=== PATIENT | male | born 1995 | race Hispanic/Latino ===

== ENCOUNTER 2016-06-03 12:54 | Emergency (ER) | payer OTHER ==
[2016-06-03] MEDS ORDERED: ONDANSETRON 4MG/2ML VIAL (J2405) As Ordered ONE (13:59)
[2016-06-03] MEDS ORDERED: KETOROLAC 30 MG/ML VIAL (J1885) As Ordered ONE (13:59)
[2016-06-03 14:16] LABS: BASO % 0.2 % (0.0-1.0); EOS # 0.1 K/mm3 (0.0-0.50); EOS % 0.7 % (0.0-3.0); LARGE UNSTAINED CELL # 0.2 K/mm3 (0.0-0.4); LARGE UNSTAINED CELL % 1.5 % (0.0-4.0); LYMPH # 1.6 K/mm3 (1.5-6.5); LYMPH % 12.9 % (24.0-44.0); MEAN CORPUSCULAR HEMOGLOBIN 30.7 pg (27.0-33.0); MEAN CORPUSCULAR VOLUME 90.2 fl (80.0-96.0); MONO # 0.4 K/mm3 (0.0-0.8); MONO % 3.6 % (0.0-5.0); NEUTROPHILS # 9.7 K/mm3 (1.8-7.7); NEUTROPHILS % 81.1 % (36.0-66.0); PLATELET COUNT, AUTOMATED 261 k/mm3 (150-450); RED CELL DISTRIBUTION WIDTH 12.2 % (11.5-14.5)
[2016-06-03 14:32] LABS: ALBUMIN 4.4 GM/DL (3.2-5.2); ALBUMIN/GLOBULIN RATIO 1.42 (1.00-1.93); ALKALINE PHOSPHATASE 95 U/L (45-117); ALT/SGPT 72 U/L (12-78); ANION GAP 8 MEQ/L (8-16); AST/SGOT 34 U/L (15-37); BILIRUBIN,DIRECT 0.1 MG/DL (0.0-0.2); BILIRUBIN,TOTAL 0.6 MG/DL (0.2-1.0); BLOOD UREA NITROGEN 10 MG/DL (7-18); CALCIUM LEVEL 9.2 MG/DL (8.5-10.1); CARBON DIOXIDE LEVEL 28 MEQ/L (21-32); CHLORIDE LEVEL 107 MEQ/L (98-107); GLOMERULAR FILTRATION RATE > 60.0 (>60); GLUCOSE, FASTING 96 MG/DL (70-105); POTASSIUM SERUM 3.9 MEQ/L (3.5-5.1); SODIUM LEVEL 143 MEQ/L (136-145); TOTAL PROTEIN 7.5 GM/DL (6.4-8.2)
--- NOTE | 2016-06-03 15:38 | EDDOCDS ---
Nurse's Notes [facility] Name: Jt Alvarez Age: 20 yrs Sex: Male : 1995 Arrival Date: 06/03/2016 Time: 12:54 Bed I3 / M3 Private MD: Other - Complete Info On Cds Diagnosis: Calculus of gallbladder with acute cholecystitis-AND SLUDGE ON U.S.;Unspecified abdominal pain-RUQ;Nausea with vomiting, unspecified;Diarrhea, unspecified Presentation: 06/03 13:06 Presenting complaint: Patient states: "I woke up with a sharp pain in my abdomen and jc4 since then I've been throwing up and now it's moved to my right side". Adult Sepsis Screening: The patient does not have new or worsening altered mentation. Patient's respiratory rate is less than 22. Systolic blood pressure is greater than 100. Patient has a qSOFA score of 0- Negative Sepsis Screen. Suicide/Homicide risk assessment- the patient denies having any suicidal and/or homicidal ideations and does not present with any other emotional, behavioral or mental health complaints. 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 Transition of care: patient was not received from another setting of care. 13:06 Acuity: GLENDY Level 3 jc4 13:06 Method Of Arrival: Walkin/Carried/Asstd jc4 Triage Assessment: 13:07 General: Appears uncomfortable. Pain: Pain currently is 6 out of 10 on a pain scale. Pt jc4 Declines HIV testing. Historical: - Allergies: no known allergies; - Home Meds: 1. none - PMHx: none; - PSHx: none; - Social history: Smoking status: Patient states was never smoker of tobacco. No barriers to communication noted, The patient speaks fluent Persian. - Family history: Not pertinent. - : The pt / caregiver states he / she is not on anticoagulants. Home medication list is obtained from the patient. - Exposure Risk Screening:: None identified. Screenin:07 Screening information is obtained from the patient. Fall risk: No risks identified. jo3 Assistance ADL's: requires no assistance with activities of daily living. Abuse/DV Screen: The patient / caregiver reports he/she is: not in a situation that causes fear, pain or injury. Nutritional screening: No deficits noted. Advance Directives: There is no active DNR order. home support is adequate. Assessment: 14:07 General: Appears in no apparent distress, Behavior is appropriate for age, cooperative. jo3 Neurological: Level of Consciousness is awake, alert, Oriented to person, place, time. Cardiovascular: No deficits noted. Respiratory: Airway is patent Respiratory effort is even, unlabored. GI: Abdomen is non- distended Bowel sounds present X 4 quads. Abd is soft X 4 quads Abd is tender to palpation in epigastric area, right upper quadrant and right lower quadrant. Derm: Skin is pink, warm & dry. 15:09 Reassessment: Patient appears in no apparent distress at this time. Patient states kr3 feeling better. Pain: Pain currently is 4 out of 10 on a pain scale. Vital Signs: 12:56 BP 149 / 78; Pulse 61; Resp 18 S; Temp 96.3(T); Pulse Ox 99% on R/A; Weight 99.79 kg gr2 (R); Height 6 ft. 0 in. (182.88 cm) (R); Pain 6/10; 15:08 BP 124 / 72; Pulse 87; Resp 16; Temp 97(O); Pulse Ox 100% on R/A; kr3 12:56 Body Mass Index 29.84 (99.79 kg, 182.88 cm) gr2 Vitals: 12:56 Log In Time: June 03, 2016 at 12:56. gr2 ED Course: 12:55 Patient visited by Margo Coleman. gr2 12:55 Other - Complete Info On Cds is Private Physician. gr2 12:55 Patient moved to Waiting gr2 12:57 Patient visited by Margo Coleman. gr2 12:58 Patient moved to Pre RCE gr2 13:07 Triage Initiated jc4 13:12 Patient moved to Triage 2 dls 13:37 [facility] dt4 13:37 Myah Salvaodr MD is Attending Physician. dt4 13:37 Patient visited by Francoise Meeks PA-C. dt4 13:42 Patient name changed from Jt\\S\\\\S\\Kim\\S\\ to Jt\\S\\ \\S\\Kim. EDMS 13:45 [facility] [place] Agreement was scanned into [employer] and attached to record. lg 13:50 Patient moved to I3 / M3 dls 14:07 The patient / caregiver is instructed regarding the plan of care and ED course. jo3 14:07 Liver Profile Sent. jo3 14:07 CRP Sent. jo3 14:07 Basic Metabolic Profile Sent. jo3 14:07 CBC with Diff Sent. jo3 14:07 Inserted saline lock: 18 gauge in left antecubital area. Labs drawn. (by ED staff). jo3 Sent per order to lab. 14:08 Lipase Sent. kr3 14:15 Patient moved to Ultrasound br3 14:18 Patient visited by Va Aldridge,RN. jo3 14:30 Patient moved to I3 / M3 br3 15:08 Patient visited by Madeleine Rodarte,CHICHO. kr3 15:09 No procedures done that require assistance. kr3 15:18 Patient visited by Francoise Meeks PA-C. dt4 15:22 Giovanni Bowen MD is Referral Physician. dt4 15:35 Discontinued lock intact, bleeding controlled, pressure dressing applied, No kr3 redness/swelling at site. Administered Medications: 14:06 Drug: NS 0.9% 1000 ml [sodium chloride 0.9 % intravenous solution] Route: IV; Rate: kr3 bolus; Site: left antecubital; 15:08 Follow up: BP 124 / 72; Pulse 87 bpm; Resp 16 bpm; Temp 97 Oral; Pulse Ox 100% RA kr3 15:08 Follow up: IV Status: Completed infusion; IV Intake: 1000ml kr3 14:06 Drug: Ondansetron 4 mg [ondansetron HCl 2 mg/mL intravenous solution (2 mL)] Route: kr3 IVP; Site: left antecubital; 14:08 Drug: ketorolac 30 mg [ketorolac 30 mg/mL (1 mL) injection solution (1 mL)] Route: IVP; kr3 Site: left antecubital; 15:08 Follow up: Response: Pain is decreased kr3 Intake: 15:08 IV: 1000.00ml; Total: 1000.00ml. kr3 Order Results: Lab Order: CBC with Diff; SPEC'M 06/03/16 14:06 Test: WHITE BLOOD COUNT; Value: 12.0; Range: 4.0-10.0; Abnormal: Above high normal; Units: K/mm3; Status: F Test: RED BLOOD COUNT; Value: 5.46; Range: 4.30-6.10; Units: M/mm3; Status: F Test: HEMOGLOBIN; Value: 16.7; Range: 14.0-18.0; Units: g/dl; Status: F Test: HEMATOCRIT; Value: 49.2; Range: 42.0-52.0; Units: %; Status: F Test: MEAN CORPUSCULAR VOLUME; Value: 90.2; Range: 80.0-96.0; Units: fl; Status: F Test: MEAN CORPUSCULAR HEMOGLOBIN; Value: 30.7; Range: 27.0-33.0; Units: pg; Status: F Test: MEAN CORPUSCULAR HGB CONC; Value: 34.0; Range: 32.0-36.5; Units: g/dl; Status: F Test: RED CELL DISTRIBUTION WIDTH; Value: 12.2; Range: 11.5-14.5; Units: %; Status: F Test: PLATELET COUNT, AUTOMATED; Value: 261; Range: 150-450; Units: k/mm3; Status: F Test: NEUTROPHILS %; Value: 81.1; Range: 36.0-66.0; Abnormal: Above high normal; Units: %; Status: F Test: LYMPH %; Value: 12.9; Range: 24.0-44.0; Abnormal: Below low normal; Units: %; Status: F Test: MONO %; Value: 3.6; Range: 0.0-5.0; Units: %; Status: F Test: EOS %; Value: 0.7; Range: 0.0-3.0; Units: %; Status: F Test: BASO %; Value: 0.2; Range: 0.0-1.0; Units: %; Status: F Test: LARGE UNSTAINED CELL %; Value: 1.5; Range: 0.0-4.0; Units: %; Status: F Test: NEUTROPHILS #; Value: 9.7; Range: 1.8-7.7; Abnormal: Above high normal; Units: K/mm3; Status: F Test: LYMPH #; Value: 1.6; Range: 1.5-6.5; Units: K/mm3; Status: F Test: MONO #; Value: 0.4; Range: 0.0-0.8; Units: K/mm3; Status: F Test: EOS #; Value: 0.1; Range: 0.0-0.50; Units: K/mm3; Status: F Test: BASO #; Value: 0.0; Range: 0.0-0.2; Units: K/mm3; Status: F Test: LARGE UNSTAINED CELL #; Value: 0.2; Range: 0.0-0.4; Units: K/mm3; Status: F Lab Order: Basic Metabolic Profile; SPEC'M 06/03/16 14:06 Test: GLUCOSE, FASTING; Value: 96; Range: 70-105; Units: MG/DL; Status: F Test: BLOOD UREA NITROGEN; Value: 10; Range: 7-18; Units: MG/DL; Status: F Test: CREATININE FOR GFR; Value: 0.80; Range: 0.70-1.30; Units: MG/DL; Status: F Test: GLOMERULAR FILTRATION RATE; Value: > 60.0; Range: >60; Status: F Test: SODIUM LEVEL; Value: 143; Range: 136-145; Units: MEQ/L; Status: F Test: POTASSIUM SERUM; Value: 3.9; Range: 3.5-5.1; Units: MEQ/L; Status: F Test: CHLORIDE LEVEL; Value: 107; Range: 98-107; Units: MEQ/L; Status: F Test: CARBON DIOXIDE LEVEL; Value: 28; Range: 21-32; Units: MEQ/L; Status: F Test: ANION GAP; Value: 8; Range: 8-16; Units: MEQ/L; Status: F Test: CALCIUM LEVEL; Value: 9.2; Range: 8.5-10.1; Units: MG/DL; Status: F Test Note: ; Units are mL/min/1.73 m2 Chronic Kidney Disease Staging per NKF: Stage I & II GFR >=60 Normal to Mildly Decreased Stage III GFR 30-59 Moderately Decreased Stage IV GFR 15-29 Severely Decreased Stage V GFR <15 Very Little GFR Left ESRD GFR <15 on BODY PRESSER Lab Order: Lipase; SPEC'M 06/03/16 14:06 Test: LIPASE; Value: 89; Range: 73-393; Units: U/L; Status: F Lab Order: CRP; SPEC'M 06/03/16 14:06 Test: C REACTIVE PROTEIN QUANTITATIV; Value: < 0.30; Range: 0.00-0.30; Units: MG/DL; Status: F Lab Order: Liver Profile; SPEC'M 06/03/16 14:06 Test: AST/SGOT; Value: 34; Range: 15-37; Units: U/L; Status: F Test: ALT/SGPT; Value: 72; Range: 12-78; Units: U/L; Status: F Test: ALKALINE PHOSPHATASE; Value: 95; Range: 45-117; Units: U/L; Status: F Test: BILIRUBIN,TOTAL; Value: 0.6; Range: 0.2-1.0; Units: MG/DL; Status: F Test: BILIRUBIN,DIRECT; Value: 0.1; Range: 0.0-0.2; Units: MG/DL; Status: F Test: TOTAL PROTEIN; Value: 7.5; Range: 6.4-8.2; Units: GM/DL; Status: F Test: ALBUMIN; Value: 4.4; Range: 3.2-5.2; Units: GM/DL; Status: F Test: ALBUMIN/GLOBULIN RATIO; Value: 1.42; Range: 1.00-1.93; Status: F Outcome: 15:09 Ultrasound Study completed. kr3 15:24 Discharge ordered by Provider. dt4 15:35 Discharge Assessment: patient administered narcotics - no. The following High Risk kr3 Discharge criteria are identified: None. Discharged to home ambulatory. Condition: improved. Discharge instructions given to patient, Instructed on discharge instructions, follow up and referral plans. medication usage, no driving heavy equipment, diet, no drinking with medication, Demonstrated understanding of instructions, medications, Pt was receptive of discharge instructions/ teaching. Prescriptions given X 3. Property sent home with patient. 15:36 Patient left the ED. kr3 Signatures: Dispatcher [employer] EDMS Amy Bob, RN RN Chacorta Hernandez, Madeleine Kulkarni lg, RN RN kr3 Va Aldridge RN RN jo3 Raymond, Brianne br3 Va Soares RN RN jc4 Margo Coleman gr2 Francoise Meeks, DAVIDC PRADEEP dt4 MTDD
--- NOTE | 2016-06-03 15:38 | EDDOCDS ---
Physician Documentation [facility] Name: Jt Alvarez Age: 20 yrs Sex: Male : 1995 Arrival Date: 06/03/2016 Time: 12:54 Bed I3 / M3 Private MD: Other - Complete Info On Cds Disposition: 06/03/16 15:24 Discharged to Home/Self Care. Impression: Calculus of gallbladder with acute cholecystitis - AND SLUDGE ON U.S., Unspecified abdominal pain - RUQ, Nausea with vomiting, unspecified, Diarrhea, unspecified. - Condition is Stable. - Discharge Instructions: Diarrhea, Clear Liquid Diet, Cholecystitis, Nausea and Vomiting. - Prescriptions for Cipro 500 mg Oral Tablet - take 1 tablet by ORAL route every 12 hours for 10 days; 20 tablet. Reglan 10 mg Oral Tablet - take 1 tablet by ORAL route every 6 hours As needed take 30 minutes before meals and at bedtime; 30 tablet. [place] 5- 325 mg Oral Tablet - take 1 tablet by ORAL route every 6 hours As needed MDD: 4 tabs; 20 tablet. - Medication Reconciliation, Local Pharmacy Hours form. - Follow up: Emergency Department; When: As needed; Reason: Worsening of conditions. Follow up: Giovanni Bowen MD; When: CALL THIS OFFICE SUNDAY MORNING TO GET SEEN THAT DAY; Reason: Wound/Symptom Recheck, Further diagnostic work-up, Recheck today's complaints, Continuance of care, To establish care. - Problem is new. - Symptoms have improved. - Notes: CALL DR. BOWEN'S OFFICE ON SUNDAY AND LET THEM KNOW YOU WERE SEEN IN THE ER TODAY AND HAVE AN INFECTED GALLBLADDER AND THAT I, LIONEL MOON, SPOKE WITH DR. BOWEN AT THAT TIME. HE WANTED TO SEE YOU IN THE OFFICE ON SUNDAY. PLEASE STICK WITH A CLEAR LIQUID DIET UNTIL YOU ARE SEEN BY HIM IN THE OFFICE ON SUNDAY. TAKE THE ANTBIOTIC DIRECTED. TAKE THE NAUSEA AND PAIN MEDICATION DIRECTED, NEEDED. RETURN TO THE ER WITH ANY WORSENING SYMPTOMS. Historical: - Allergies: no known allergies; - Home Meds: 1. none - PMHx: none; - PSHx: none; - Social history: Smoking status: Patient states was never smoker of tobacco. No barriers to communication noted, The patient speaks fluent Slovak. - Family history: Not pertinent. - : The pt / caregiver states he / she is not on anticoagulants. Home medication list is obtained from the patient. - Exposure Risk Screening:: None identified. Vital Signs: 06/03 12:56 BP 149 / 78; Pulse 61; Resp 18 S; Temp 96.3(T); Pulse Ox 99% on R/A; Weight 99.79 kg / gr2 220 lbs (R); Height 6 ft. 0 in. (182.88 cm) (R); Pain 6/10; 15:08 BP 124 / 72; Pulse 87; Resp 16; Temp 97(O); Pulse Ox 100% on R/A; kr3 12:56 Body Mass Index 29.84 (99.79 kg, 182.88 cm) gr2 MDM: 13:44 Financial registration complete. lg 13:45 [facility] Payment Agreement was scanned into [employer] and attached to record. lg 13:51 IV Saline Lock ordered. dt4 13:51 NS 0.9% 1000 ml IV at bolus once ordered. dt4 13:51 Ondansetron 4 mg IVP once ordered. dt4 13:51 ketorolac 30 mg IVP once ordered. dt4 13:53 CBC with Diff Ordered. EDMS 13:53 Basic Metabolic Profile Ordered. EDMS 13:53 Lipase Ordered. EDMS 13:53 CRP Ordered. EDMS 13:53 Liver Profile Ordered. EDMS 13:53 ABD US: Limited Ordered. EDMS Administered Medications: 14:06 Drug: NS 0.9% 1000 ml [sodium chloride 0.9 % intravenous solution] Route: IV; Rate: kr3 bolus; Site: left antecubital; 15:08 Follow up: BP 124 / 72; Pulse 87 bpm; Resp 16 bpm; Temp 97 Oral; Pulse Ox 100% RA kr3 15:08 Follow up: IV Status: Completed infusion; IV Intake: 1000ml kr3 14:06 Drug: Ondansetron 4 mg [ondansetron HCl 2 mg/mL intravenous solution (2 mL)] Route: kr3 IVP; Site: left antecubital; 14:08 Drug: ketorolac 30 mg [ketorolac 30 mg/mL (1 mL) injection solution (1 mL)] Route: IVP; kr3 Site: left antecubital; 15:08 Follow up: Response: Pain is decreased kr3 Signatures: Dispatcher [employer] Chacorta Arellano, Reg Reg lg Madeleine Rodarte,RN RN kr3 Va Aldridge,RN RN [email or web address] Va Soares, RN RN jc4 Lionel Moon, PRADEEP PABrooks [email or web address] The chart was reviewed and I authenticate all verbal orders and agree with the evaluation and treatment provided.Attachments: 13:45 [facility] [place] Agreement lg MTDD
--- NOTE | 2016-06-03 17:10 | REP ---
Right upper quadrant sonography: History: Biliary colic. Findings: Scanning through the right upper quadrant of the abdomen demonstrates a normal size but thick-walled gallbladder containing moderate sludge and echogenic shadowing stones. There is some pericholecystic fluid. The gallbladder wall measures up to 0.35 cm in thickness. No ascites is seen. No focal liver lesion is seen. Common bile duct is normal measuring 0.3 cm in greatest diameter. No right renal abnormality is observed. The right kidney measures 12.8 x 5.7 x 4.7 cm. Impression: Cholelithiasis with sludge. Gallbladder wall thickening and mild pericholecystic fluid consistent with cholecystitis. Normal CBD. Otherwise negative. Signed by Alexandre Aparicio MD 06/03/2016 05:35 P
--- NOTE | 2016-06-06 11:17 | EDDOCDS ---
Nurse's Notes [facility] Name: Jt Alvarez Age: 20 yrs Sex: Male : 1995 Arrival Date: 06/03/2016 Time: 12:54 Bed I3 / M3 Private MD: Other - Complete Info On Cds Diagnosis: Calculus of gallbladder with acute cholecystitis-AND SLUDGE ON U.S.;Unspecified abdominal pain-RUQ;Nausea with vomiting, unspecified;Diarrhea, unspecified Presentation: 06/03 13:06 Presenting complaint: Patient states: "I woke up with a sharp pain in my abdomen and jc4 since then I've been throwing up and now it's moved to my right side". Adult Sepsis Screening: The patient does not have new or worsening altered mentation. Patient's respiratory rate is less than 22. Systolic blood pressure is greater than 100. Patient has a qSOFA score of 0- Negative Sepsis Screen. Suicide/Homicide risk assessment- the patient denies having any suicidal and/or homicidal ideations and does not present with any other emotional, behavioral or mental health complaints. 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 Transition of care: patient was not received from another setting of care. 13:06 Acuity: GLENDY Level 3 jc4 13:06 Method Of Arrival: Walkin/Carried/Asstd jc4 Triage Assessment: 13:07 General: Appears uncomfortable. Pain: Pain currently is 6 out of 10 on a pain scale. Pt jc4 Declines HIV testing. Historical: - Allergies: no known allergies; - Home Meds: 1. none - PMHx: none; - PSHx: none; - Social history: Smoking status: Patient states was never smoker of tobacco. No barriers to communication noted, The patient speaks fluent Kyrgyz. - Family history: Not pertinent. - : The pt / caregiver states he / she is not on anticoagulants. Home medication list is obtained from the patient. - Exposure Risk Screening:: None identified. Screenin:07 Screening information is obtained from the patient. Fall risk: No risks identified. jo3 Assistance ADL's: requires no assistance with activities of daily living. Abuse/DV Screen: The patient / caregiver reports he/she is: not in a situation that causes fear, pain or injury. Nutritional screening: No deficits noted. Advance Directives: There is no active DNR order. home support is adequate. Assessment: 14:07 General: Appears in no apparent distress, Behavior is appropriate for age, cooperative. jo3 Neurological: Level of Consciousness is awake, alert, Oriented to person, place, time. Cardiovascular: No deficits noted. Respiratory: Airway is patent Respiratory effort is even, unlabored. GI: Abdomen is non- distended Bowel sounds present X 4 quads. Abd is soft X 4 quads Abd is tender to palpation in epigastric area, right upper quadrant and right lower quadrant. Derm: Skin is pink, warm & dry. 15:09 Reassessment: Patient appears in no apparent distress at this time. Patient states kr3 feeling better. Pain: Pain currently is 4 out of 10 on a pain scale. Vital Signs: 12:56 BP 149 / 78; Pulse 61; Resp 18 S; Temp 96.3(T); Pulse Ox 99% on R/A; Weight 99.79 kg gr2 (R); Height 6 ft. 0 in. (182.88 cm) (R); Pain 6/10; 15:08 BP 124 / 72; Pulse 87; Resp 16; Temp 97(O); Pulse Ox 100% on R/A; kr3 12:56 Body Mass Index 29.84 (99.79 kg, 182.88 cm) gr2 Vitals: 12:56 Log In Time: June 03, 2016 at 12:56. gr2 ED Course: 12:55 Patient visited by Margo Coleman. gr2 12:55 Other - Complete Info On Cds is Private Physician. gr2 12:55 Patient moved to Waiting gr2 12:57 Patient visited by Margo Coleman. gr2 12:58 Patient moved to Pre RCE gr2 13:07 Triage Initiated jc4 13:12 Patient moved to Triage 2 dls 13:37 Francoise Meeks PA-C is [facility]. dt4 13:37 Myah Salvador MD is Attending Physician. dt4 13:37 Patient visited by Francoise Meeks PA-C. dt4 13:42 Patient name changed from Jt\\S\\\\S\\Kim\\S\\ to Jt\\S\\ \\S\\Kim. EDMS 13:45 [facility] Payment Agreement was scanned into [employer] and attached to record. lg 13:50 Patient moved to I3 / M3 dls 14:07 The patient / caregiver is instructed regarding the plan of care and ED course. jo3 14:07 Liver Profile Sent. jo3 14:07 CRP Sent. jo3 14:07 Basic Metabolic Profile Sent. jo3 14:07 CBC with Diff Sent. jo3 14:07 Inserted saline lock: 18 gauge in left antecubital area. Labs drawn. (by ED staff). jo3 Sent per order to lab. 14:08 Lipase Sent. kr3 14:15 Patient moved to Ultrasound br3 14:18 Patient visited by Va Aldridge,RN. jo3 14:30 Patient moved to I3 / M3 br3 15:08 Patient visited by Madeleine Rodarte,CHICHO. kr3 15:09 No procedures done that require assistance. kr3 15:18 Patient visited by Francoise Meeks PA-C. dt4 15:22 Giovanni Bowen MD is Referral Physician. dt4 15:35 Discontinued lock intact, bleeding controlled, pressure dressing applied, No kr3 redness/swelling at site. 17:51 ABD US: Limited Returned. EDMS 20:56 T-Sheet-- Draft Copy was scanned into [employer] and attached to record. klr 06/04 09:29 Radiology Report was scanned into [employer] and attached to record. gb Administered Medications: 06/03 14:06 Drug: NS 0.9% 1000 ml [sodium chloride 0.9 % intravenous solution] Route: IV; Rate: kr3 bolus; Site: left antecubital; 15:08 Follow up: BP 124 / 72; Pulse 87 bpm; Resp 16 bpm; Temp 97 Oral; Pulse Ox 100% RA kr3 15:08 Follow up: IV Status: Completed infusion; IV Intake: 1000ml kr3 14:06 Drug: Ondansetron 4 mg [ondansetron HCl 2 mg/mL intravenous solution (2 mL)] Route: kr3 IVP; Site: left antecubital; 14:08 Drug: ketorolac 30 mg [ketorolac 30 mg/mL (1 mL) injection solution (1 mL)] Route: IVP; kr3 Site: left antecubital; 15:08 Follow up: Response: Pain is decreased kr3 Intake: 15:08 IV: 1000.00ml; Total: 1000.00ml. kr3 Order Results: Lab Order: CBC with Diff; SPEC'M 06/03/16 14:06 Test: WHITE BLOOD COUNT; Value: 12.0; Range: 4.0-10.0; Abnormal: Above high normal; Units: K/mm3; Status: F Test: RED BLOOD COUNT; Value: 5.46; Range: 4.30-6.10; Units: M/mm3; Status: F Test: HEMOGLOBIN; Value: 16.7; Range: 14.0-18.0; Units: g/dl; Status: F Test: HEMATOCRIT; Value: 49.2; Range: 42.0-52.0; Units: %; Status: F Test: MEAN CORPUSCULAR VOLUME; Value: 90.2; Range: 80.0-96.0; Units: fl; Status: F Test: MEAN CORPUSCULAR HEMOGLOBIN; Value: 30.7; Range: 27.0-33.0; Units: pg; Status: F Test: MEAN CORPUSCULAR HGB CONC; Value: 34.0; Range: 32.0-36.5; Units: g/dl; Status: F Test: RED CELL DISTRIBUTION WIDTH; Value: 12.2; Range: 11.5-14.5; Units: %; Status: F Test: PLATELET COUNT, AUTOMATED; Value: 261; Range: 150-450; Units: k/mm3; Status: F Test: NEUTROPHILS %; Value: 81.1; Range: 36.0-66.0; Abnormal: Above high normal; Units: %; Status: F Test: LYMPH %; Value: 12.9; Range: 24.0-44.0; Abnormal: Below low normal; Units: %; Status: F Test: MONO %; Value: 3.6; Range: 0.0-5.0; Units: %; Status: F Test: EOS %; Value: 0.7; Range: 0.0-3.0; Units: %; Status: F Test: BASO %; Value: 0.2; Range: 0.0-1.0; Units: %; Status: F Test: LARGE UNSTAINED CELL %; Value: 1.5; Range: 0.0-4.0; Units: %; Status: F Test: NEUTROPHILS #; Value: 9.7; Range: 1.8-7.7; Abnormal: Above high normal; Units: K/mm3; Status: F Test: LYMPH #; Value: 1.6; Range: 1.5-6.5; Units: K/mm3; Status: F Test: MONO #; Value: 0.4; Range: 0.0-0.8; Units: K/mm3; Status: F Test: EOS #; Value: 0.1; Range: 0.0-0.50; Units: K/mm3; Status: F Test: BASO #; Value: 0.0; Range: 0.0-0.2; Units: K/mm3; Status: F Test: LARGE UNSTAINED CELL #; Value: 0.2; Range: 0.0-0.4; Units: K/mm3; Status: F Lab Order: Basic Metabolic Profile; SPEC'M 06/03/16 14:06 Test: GLUCOSE, FASTING; Value: 96; Range: 70-105; Units: MG/DL; Status: F Test: BLOOD UREA NITROGEN; Value: 10; Range: 7-18; Units: MG/DL; Status: F Test: CREATININE FOR GFR; Value: 0.80; Range: 0.70-1.30; Units: MG/DL; Status: F Test: GLOMERULAR FILTRATION RATE; Value: > 60.0; Range: >60; Status: F Test: SODIUM LEVEL; Value: 143; Range: 136-145; Units: MEQ/L; Status: F Test: POTASSIUM SERUM; Value: 3.9; Range: 3.5-5.1; Units: MEQ/L; Status: F Test: CHLORIDE LEVEL; Value: 107; Range: 98-107; Units: MEQ/L; Status: F Test: CARBON DIOXIDE LEVEL; Value: 28; Range: 21-32; Units: MEQ/L; Status: F Test: ANION GAP; Value: 8; Range: 8-16; Units: MEQ/L; Status: F Test: CALCIUM LEVEL; Value: 9.2; Range: 8.5-10.1; Units: MG/DL; Status: F Test Note: ; Units are mL/min/1.73 m2 Chronic Kidney Disease Staging per NKF: Stage I & II GFR >=60 Normal to Mildly Decreased Stage III GFR 30-59 Moderately Decreased Stage IV GFR 15-29 Severely Decreased Stage V GFR <15 Very Little GFR Left ESRD GFR <15 on TYPE 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 Lab Order: Lipase; SPEC'M 06/03/16 14:06 Test: LIPASE; Value: 89; Range: 73-393; Units: U/L; Status: F Lab Order: CRP; SPEC'M 06/03/16 14:06 Test: C REACTIVE PROTEIN QUANTITATIV; Value: < 0.30; Range: 0.00-0.30; Units: MG/DL; Status: F Lab Order: Liver Profile; SPEC'M 06/03/16 14:06 Test: AST/SGOT; Value: 34; Range: 15-37; Units: U/L; Status: F Test: ALT/SGPT; Value: 72; Range: 12-78; Units: U/L; Status: F Test: ALKALINE PHOSPHATASE; Value: 95; Range: 45-117; Units: U/L; Status: F Test: BILIRUBIN,TOTAL; Value: 0.6; Range: 0.2-1.0; Units: MG/DL; Status: F Test: BILIRUBIN,DIRECT; Value: 0.1; Range: 0.0-0.2; Units: MG/DL; Status: F Test: TOTAL PROTEIN; Value: 7.5; Range: 6.4-8.2; Units: GM/DL; Status: F Test: ALBUMIN; Value: 4.4; Range: 3.2-5.2; Units: GM/DL; Status: F Test: ALBUMIN/GLOBULIN RATIO; Value: 1.42; Range: 1.00-1.93; Status: F Radiology Order: ABD US: Limited Test: ABD US: Limited REASON FOR EXAMINATION: Biliary Colic; Right upper quadrant sonography:; ; History: Biliary colic.; ; Findings: Scanning through the right upper quadrant of the abdomen demonstrates; a normal size but thick-walled gallbladder containing moderate sludge and; echogenic shadowing stones. There is some pericholecystic fluid. The; gallbladder wall measures up to 0.35 cm in thickness. No ascites is seen. No; focal liver lesion is seen. Common bile duct is normal measuring 0.3 cm in; greatest diameter. No right renal abnormality is observed. The right kidney; measures 12.8 x 5.7 x 4.7 cm.; ; Impression:; ; Cholelithiasis with sludge. Gallbladder wall thickening and mild pericholecystic; fluid consistent with cholecystitis. Normal CBD. Otherwise negative.; ; ; Signed by; Alexandre Aparicio MD 06/03/2016 05:35 P; Outcome: 15:09 Ultrasound Study completed. kr3 15:24 Discharge ordered by Provider. dt4 15:35 Discharge Assessment: patient administered narcotics - no. The following High Risk kr3 Discharge criteria are identified: None. Discharged to home ambulatory. Condition: improved. Discharge instructions given to patient, Instructed on discharge instructions, follow up and referral plans. medication usage, no driving heavy equipment, diet, no drinking with medication, Demonstrated understanding of instructions, medications, Pt was receptive of discharge instructions/ teaching. Prescriptions given X 3. Property sent home with patient. 15:36 Patient left the ED. kr3 Signatures: Dispatcher [employer] EDMS Amy Bob, CHICHO RN dls Lupe Salazar, Reg Reg gb Chacorta Hernández, Reg Reg lg Madeleine Rodarte RN RN kr3 Va Aldridge,RN RN jo3 Lana Coleman br3 Va Soares RN RN [email or web address] Margo Coleman gr2 Francoise Meeks PA-C PA-C dt4 Carlene Wagoner Chart Complete MTDD
--- NOTE | 2016-06-06 11:17 | EDDOCDS ---
Physician Documentation [facility] Name: Jt Alvarez Age: 20 yrs Sex: Male : 1995 Arrival Date: 06/03/2016 Time: 12:54 Bed I3 / M3 Private MD: Other - Complete Info On Cds Disposition: 06/03/16 15:24 Discharged to Home/Self Care. Impression: Calculus of gallbladder with acute cholecystitis - AND SLUDGE ON U.S., Unspecified abdominal pain - RUQ, Nausea with vomiting, unspecified, Diarrhea, unspecified. - Condition is Stable. - Discharge Instructions: Diarrhea, Clear Liquid Diet, Cholecystitis, Nausea and Vomiting. - Prescriptions for Cipro 500 mg Oral Tablet - take 1 tablet by ORAL route every 12 hours for 10 days; 20 tablet. Reglan 10 mg Oral Tablet - take 1 tablet by ORAL route every 6 hours As needed take 30 minutes before meals and at bedtime; 30 tablet. [place] 5- 325 mg Oral Tablet - take 1 tablet by ORAL route every 6 hours As needed MDD: 4 tabs; 20 tablet. - Medication Reconciliation, Local Pharmacy Hours form. - Follow up: Emergency Department; When: As needed; Reason: Worsening of conditions. Follow up: Giovanni Bowen MD; When: CALL THIS OFFICE SUNDAY MORNING TO GET SEEN THAT DAY; Reason: Wound/Symptom Recheck, Further diagnostic work-up, Recheck today's complaints, Continuance of care, To establish care. - Problem is new. - Symptoms have improved. - Notes: CALL DR. BOWEN'S OFFICE ON SUNDAY AND LET THEM KNOW YOU WERE SEEN IN THE ER TODAY AND HAVE AN INFECTED GALLBLADDER AND THAT I, LIONEL MOON, SPOKE WITH DR. BOWEN AT THAT TIME. HE WANTED TO SEE YOU IN THE OFFICE ON SUNDAY. PLEASE STICK WITH A CLEAR LIQUID DIET UNTIL YOU ARE SEEN BY HIM IN THE OFFICE ON SUNDAY. TAKE THE ANTBIOTIC DIRECTED. TAKE THE NAUSEA AND PAIN MEDICATION DIRECTED, NEEDED. RETURN TO THE ER WITH ANY WORSENING SYMPTOMS. Historical: - Allergies: no known allergies; - Home Meds: 1. none - PMHx: none; - PSHx: none; - Social history: Smoking status: Patient states was never smoker of tobacco. No barriers to communication noted, The patient speaks fluent Armenian. - Family history: Not pertinent. - : The pt / caregiver states he / she is not on anticoagulants. Home medication list is obtained from the patient. - Exposure Risk Screening:: None identified. Vital Signs: 06/03 12:56 BP 149 / 78; Pulse 61; Resp 18 S; Temp 96.3(T); Pulse Ox 99% on R/A; Weight 99.79 kg / gr2 220 lbs (R); Height 6 ft. 0 in. (182.88 cm) (R); Pain 6/10; 15:08 BP 124 / 72; Pulse 87; Resp 16; Temp 97(O); Pulse Ox 100% on R/A; kr3 12:56 Body Mass Index 29.84 (99.79 kg, 182.88 cm) gr2 MDM: 13:44 Financial registration complete. lg 13:45 [facility] Payment Agreement was scanned into [employer] and attached to record. lg 13:51 IV Saline Lock ordered. dt4 13:51 NS 0.9% 1000 ml IV at bolus once ordered. dt4 13:51 Ondansetron 4 mg IVP once ordered. dt4 13:51 ketorolac 30 mg IVP once ordered. dt4 13:53 CBC with Diff Ordered. EDMS 13:53 Basic Metabolic Profile Ordered. EDMS 13:53 Lipase Ordered. EDMS 13:53 CRP Ordered. EDMS 13:53 Liver Profile Ordered. EDMS 13:53 ABD US: Limited Ordered. EDMS 20:56 T-Sheet-- Draft Copy was scanned into [employer] and attached to record. klr 06/04 09:29 Radiology Report was scanned into [employer] and attached to record. gb Administered Medications: 06/03 14:06 Drug: NS 0.9% 1000 ml [sodium chloride 0.9 % intravenous solution] Route: IV; Rate: kr3 bolus; Site: left antecubital; 15:08 Follow up: BP 124 / 72; Pulse 87 bpm; Resp 16 bpm; Temp 97 Oral; Pulse Ox 100% RA kr3 15:08 Follow up: IV Status: Completed infusion; IV Intake: 1000ml kr3 14:06 Drug: Ondansetron 4 mg [ondansetron HCl 2 mg/mL intravenous solution (2 mL)] Route: kr3 IVP; Site: left antecubital; 14:08 Drug: ketorolac 30 mg [ketorolac 30 mg/mL (1 mL) injection solution (1 mL)] Route: IVP; kr3 Site: left antecubital; 15:08 Follow up: Response: Pain is decreased kr3 Signatures: Dispatcher [employer] EDMS Lupe Salazar, Reg Reg gb MeghnaChacorta herring, Reg Reg lg Madeleine Rodarte,CHICHO RN kr3 Va Aldridge,RN RN [email or web address] Va Soares, RN RN jc4 Lionel Moon PA-C PACarlene Cristobal The chart was reviewed and I authenticate all verbal orders and agree with the evaluation and treatment provided.Attachments: 13:45 [facility] Payment Agreement lg 20:56 T-Sheet-- Draft Copy klr Chart Complete MTDD
--- NOTE | 2016-06-06 11:17 | EDDOCDS ---
Physician Documentation [facility] Name: Jt Alvarez Age: 20 yrs Sex: Male : 1995 Arrival Date: 06/03/2016 Time: 12:54 Bed I3 / M3 Private MD: Other - Complete Info On Cds Disposition: 06/03/16 15:24 Discharged to Home/Self Care. Impression: Calculus of gallbladder with acute cholecystitis - AND SLUDGE ON U.S., Unspecified abdominal pain - RUQ, Nausea with vomiting, unspecified, Diarrhea, unspecified. - Condition is Stable. - Discharge Instructions: Diarrhea, Clear Liquid Diet, Cholecystitis, Nausea and Vomiting. - Prescriptions for Cipro 500 mg Oral Tablet - take 1 tablet by ORAL route every 12 hours for 10 days; 20 tablet. Reglan 10 mg Oral Tablet - take 1 tablet by ORAL route every 6 hours As needed take 30 minutes before meals and at bedtime; 30 tablet. [place] 5- 325 mg Oral Tablet - take 1 tablet by ORAL route every 6 hours As needed MDD: 4 tabs; 20 tablet. - Medication Reconciliation, Local Pharmacy Hours form. - Follow up: Emergency Department; When: As needed; Reason: Worsening of conditions. Follow up: Giovanni Bowen MD; When: CALL THIS OFFICE SUNDAY MORNING TO GET SEEN THAT DAY; Reason: Wound/Symptom Recheck, Further diagnostic work-up, Recheck today's complaints, Continuance of care, To establish care. - Problem is new. - Symptoms have improved. - Notes: CALL DR. BOWEN'S OFFICE ON SUNDAY AND LET THEM KNOW YOU WERE SEEN IN THE ER TODAY AND HAVE AN INFECTED GALLBLADDER AND THAT I, LIONEL MOON, SPOKE WITH DR. BOWEN AT THAT TIME. HE WANTED TO SEE YOU IN THE OFFICE ON SUNDAY. PLEASE STICK WITH A CLEAR LIQUID DIET UNTIL YOU ARE SEEN BY HIM IN THE OFFICE ON SUNDAY. TAKE THE ANTBIOTIC DIRECTED. TAKE THE NAUSEA AND PAIN MEDICATION DIRECTED, NEEDED. RETURN TO THE ER WITH ANY WORSENING SYMPTOMS. Historical: - Allergies: no known allergies; - Home Meds: 1. none - PMHx: none; - PSHx: none; - Social history: Smoking status: Patient states was never smoker of tobacco. No barriers to communication noted, The patient speaks fluent Croatian. - Family history: Not pertinent. - : The pt / caregiver states he / she is not on anticoagulants. Home medication list is obtained from the patient. - Exposure Risk Screening:: None identified. Vital Signs: 06/03 12:56 BP 149 / 78; Pulse 61; Resp 18 S; Temp 96.3(T); Pulse Ox 99% on R/A; Weight 99.79 kg / gr2 220 lbs (R); Height 6 ft. 0 in. (182.88 cm) (R); Pain 6/10; 15:08 BP 124 / 72; Pulse 87; Resp 16; Temp 97(O); Pulse Ox 100% on R/A; kr3 12:56 Body Mass Index 29.84 (99.79 kg, 182.88 cm) gr2 MDM: 13:44 Financial registration complete. lg 13:45 [facility] Payment Agreement was scanned into [employer] and attached to record. lg 13:51 IV Saline Lock ordered. dt4 13:51 NS 0.9% 1000 ml IV at bolus once ordered. dt4 13:51 Ondansetron 4 mg IVP once ordered. dt4 13:51 ketorolac 30 mg IVP once ordered. dt4 13:53 CBC with Diff Ordered. EDMS 13:53 Basic Metabolic Profile Ordered. EDMS 13:53 Lipase Ordered. EDMS 13:53 CRP Ordered. EDMS 13:53 Liver Profile Ordered. EDMS 13:53 ABD US: Limited Ordered. EDMS 20:56 T-Sheet-- Draft Copy was scanned into [employer] and attached to record. klr 06/04 09:29 Radiology Report was scanned into [employer] and attached to record. gb Administered Medications: 06/03 14:06 Drug: NS 0.9% 1000 ml [sodium chloride 0.9 % intravenous solution] Route: IV; Rate: kr3 bolus; Site: left antecubital; 15:08 Follow up: BP 124 / 72; Pulse 87 bpm; Resp 16 bpm; Temp 97 Oral; Pulse Ox 100% RA kr3 15:08 Follow up: IV Status: Completed infusion; IV Intake: 1000ml kr3 14:06 Drug: Ondansetron 4 mg [ondansetron HCl 2 mg/mL intravenous solution (2 mL)] Route: kr3 IVP; Site: left antecubital; 14:08 Drug: ketorolac 30 mg [ketorolac 30 mg/mL (1 mL) injection solution (1 mL)] Route: IVP; kr3 Site: left antecubital; 15:08 Follow up: Response: Pain is decreased kr3 Signatures: Dispatcher [employer] EDMS Lupe Salazar, Reg Reg gb MeghnaChacorta herring, Reg Reg lg Madeleine Rodarte,CHICHO RN kr3 Va Aldridge,RN RN benjie3 Va Soares, RN RN jc4 Lionel Moon PA-C PACarlene Cristobal The chart was reviewed and I authenticate all verbal orders and agree with the evaluation and treatment provided.Attachments: 13:45 [facility] [place] [facility] Payment Agreement lg 20:56 T-Sheet-- Draft Copy klr Chart Complete MTDD
== END 2016-06-03 15:36 | disposition home or self-care (01) ==
LOC: M ED 12:54
DX: K80.12 Calculus of gallbladder with acute and chronic cholecystitis without obstruction (principal); R10.11 Right upper quadrant pain; R11.2 Nausea with vomiting, unspecified; R19.7 Diarrhea, unspecified
CPT/HCPCS: 36415; 76705; 80048; 80076; 83690; 85025; 86140; 96361; 96374; 96375; 99284; J1885; J2405

== ENCOUNTER → 2016-06-20 | Day surgery (SDC) | payer OTHER ==
[~2016-06-20] VITALS: Ht 182.9 cm; Wt 99.8 kg
[~2016-06-20] MED LIST: BUPIVACAINE/EPIN 0.25% 30 ML VIAL As Ordered ONE; BUPIVACAINE/EPIN 0.25% 30 ML VIAL XX ONE; CONRAY-60 60% 50ML VIAL (Q9961) As Ordered ONE; GLUCAGON FOR INJ 1 MG VIAL (J1610) As Ordered ONE; GLYCOPYRROLATE INJ 0.2 MG/ML 2 ML VIAL As Ordered ONE; KETOROLAC 30 MG/ML VIAL (J1885) IV SCH; KETOROLAC 60 MG/2 ML VIAL (J1885) As Ordered ONE; LIDOCAINE 2% INJ 100 MG/5 ML SDV (FOR ANES.) As Ordered ONE; LR 1,000 ML IV SCH; MIDAZOLAM INJ 2 MG/2 ML VIAL (J2250) As Ordered ONE; MORPHINE 2 MG/ML 1ML SYRINGE IV PRN; NEOSTIGMINE 1MG/ML 5 ML SYRINGE (J2710) As Ordered ONE; NORCO, ANEXSIA 5/325MG TABLET (HYDROcodone/ACETAMINOPHEN) As Ordered ONE; NORCO, ANEXSIA 5/325MG TABLET (HYDROcodone/ACETAMINOPHEN) PO PRN; No medications; ONDANSETRON 4MG/2ML VIAL (J2405) As Ordered ONE; ONDANSETRON 4MG/2ML VIAL (J2405) IV PRN; PROPOFOL 200 MG/20 ML VIAL As Ordered ONE; ROCURONIUM BROMIDE 50 MG/5 ML VIAL As Ordered ONE; ceFAZolin SOD 1 GM in D5W MINI-BAG PLUS 50 ML IV ONE; dexameTHASONE 4 MG/ML 1ML VIAL (J1100) As Ordered ONE; fentaNYL 100 MCG/2 ML INJECTION (J3010) IV PRN; fentaNYL 250 MCG/5 ML INJECTION (J3010) As Ordered ONE
--- NOTE | 2016-06-20 11:34 | RO ---
DATE OF PROCEDURE: 06/20/2016 PREOPERATIVE DIAGNOSIS: History of acute cholecystitis (symptomatic gallstones). POSTOPERATIVE DIAGNOSIS: History of acute cholecystitis (symptomatic gallstones). PROCEDURE: Laparoscopic cholecystectomy. SURGEON: Giovanni Bowen Jr., MD FORGE HAND: ANESTHESIA: General endotracheal anesthesia. ESTIMATED BLOOD LOSS: Minimal. FLUIDS: Crystalloid. BRIEF PROCEDURE SUMMARY: The patient was brought to the operating room and was given general anesthesia. After adequate anesthesia and preoperative antibiotics were given, the patient was prepped and draped in the usual sterile fashion. Next, a supraumbilical incision was made with a skin knife. Blunt dissection was carried down to the fascia. Fascia was grasped, elevated with Gideon clamps and Veress needle placed into the abdominal cavity and insufflated to 15 mm of pressure. A dilating 10 mm trocar was placed at the site and under direct visualization an epigastric and two lateral trocars were placed. The gallbladder was grasped, retracted superiorly. There were numerous adhesions of the gallbladder to the omentum, which were taken down with hook cautery. The neck of the gallbladder was cleared of adhesions using the hook cautery as well as some minimal blunt dissection and the neck of the gallbladder then was cleared of surrounding peritoneum, specifically on the lateral side using hook cautery. The anterior surface was also cleared of peritoneum at this time and then I started to develop a window behind the neck the gallbladder with seeing cystic artery medial and superior. Once a window was created and a critical view of safety was created, after mobilizing the gallbladder off the liver bed up to the cystic plane, visualizing the cystic artery, the cystic duct, I felt that this was a good view of the critical view of safety. However, there was a stone in the cystic duct itself that I milked more proximal back up into the gallbladder neck itself. I do feel part of this was crushed at that time, but eventually I was able to milk this up into the neck of the gallbladder. Once this was milked adequately, clips were placed on the cystic duct both proximally and distally and the gallbladder then was taken from the gallbladder bed using electrocautery taking the cystic artery as the dissection continued. There were some hypervascular branches of veins given this thickened gallbladder up on the bed of the dissection and a couple clips were placed on this vein paralleling the bed of the gallbladder. The gallbladder was eventually taken from the gallbladder bed. It was entered and there were some mucus within the gallbladder itself, no purulent material, but mostly mucous. This was suctioned out and the gallbladder then was taken out through the umbilicus in an EndoCatch bag. The right upper quadrant was copiously irrigated until clear. All of the operative field was clean and dry. The cystic duct clips were intact. No bleeding was appreciated from the site. All trocars were removed under direct visualization. #0 Vicryl was used to close the fascia at the umbilicus and all incisions were closed with #4-0 Vicryl. Steri-Strips and a dry sterile dressing was applied. The patient was awakened, extubated, and brought to the recovery room awake, alert, and hemodynamically stable. Sponge and needle counts were correct times two.
[2016-06-20 12:27] VITALS: BP 121/70
== END | disposition home or self-care (01) ==
LOC: M SDC 07:52
PROVIDERS: ATTEND Surgery
DX: K80.10 Calculus of gallbladder with chronic cholecystitis without obstruction (principal)
CPT/HCPCS: 47562; 88304; J0690; J1100; J1885; J2250; J2405; J2710; J3010